=== PATIENT | female | born 1940 | race Caucasian/White ===

== ENCOUNTER 2022-02-19 09:00 | Outpatient (CLI) | payer OTHER, SELFPAY ==
--- NOTE | 2022-02-13 13:00 | PC.NURSE ---
Pre Radiology instructions Report to the Outpatient Waiting Room, entrance under the green pavilion located off [facility], at time __0930 on date __02/19/22 . Procedure Time: 1130 . One visitor will be allowed to accompany the patient into the hospital. The visitor will be instructed to remain with patient at all times or leave the building. We will allow the visitor to come back to the postoperative area when patient is ready. You and your visitor will be asked a series of questions to screen for COVID 19 for your protection. A mask is required within the hospital. Pre-procedure COVID Testing Requirements: No COVID Test needed if: (proof is required; if not received patient will have Rapid Test prior to entry)- Patient has received COVID Vaccine at least 14 days prior to procedure date or- Patient has positive COVID test result within last 90 days of procedure date. COVID Test needed if above criteria is not met If not COVID vaccinated a COVID test must be conducted within 72 hours of surgery and patient is asked to isolate self from time of testing until procedure. You will go to the [facility] for your COVID testing. The [facility] is located at the corner of [address] [facility]. You will only be called if COVID results are positive and your surgeon may reschedule your elective procedure date Patients are to have no food or drink 6 hours prior to procedure time Driving will be restricted after the procedure, you must have a person to drive you home. Labs will be drawn in preop area and once reviewed, you will be taken to radiology area for procedure. When the procedure is completed, you will be taken to outpatient where you will be monitored for several hours. You may have one visitor in this area. Other than holding anti-coagulants, patient may take other medication(s) as scheduled. Prior to your appointment date patients are instructed to hold anti-coagulants after discussing with ordering provider to stop. If unable to discontinue anti-coagulants please notify radiologist. No aspirin or warfarin (Coumadin) for 7 days prior to the procedure. No clopidogrel (Plavix), ticagrelor (Brilinta), prasugrel (Effient) or dabigatran (Pradaxa) for 5 days prior to the procedure. No rivaroxaban (Xarelto), apixaban (Eliquis), dipyridamole (Aggrenox or Persantine) or cilostazol (Pletal) for 2 days prior to the procedure. Medications to discontinue per physician: ____ASPIRIN 7 DAYS PRE OP Date to take last dose: _02/11/22 Please leave all valuables, including medications, at home the day of procedure. The hospital will not accept responsibility for valuables. Wear comfortable, loose fitting clothing. Follow any additional instructions given to you from ordering provider. Telephone instructions given to _PATIENT and asked if any additional questions and then verbalized understanding. Patient advised to call scheduling provider office or registration scheduling [phone] if any additional questions.
[2022-02-13 13:05] VITALS: BMI 35.4
[2022-02-19] VITALS (10 sets, daily range): BP systolic 112–145; BP diastolic 64–87; PULSE 61–71; RESP 16–20; TEMP 35.9; O2SAT 100
--- NOTE | ~2022-02-19 | XR_ITS ---
EXAMINATION: XR chest 1V DATE: 02/19/2022 11:13 INDICATION: Post percutaneous left lung biopsy TECHNIQUE: frontal view of the chest was obtained. COMPARISON: Outside institution chest CT dated 12/28/2021 FINDINGS: Again seen are a few small bilateral calcified nodules along with a calcified AP window lymph node co nsistent with old granulomatous disease. Ill-defined nodular opacity left infrahilar region correspon ding to the biopsied nodule. No other airspace opacities, pulmonary edema, pleural effusion or pneumo thorax. The cardiomediastinal silhouette is normal. IMPRESSION: 1. No pneumothorax or other acute pulmonary disease post percutaneous biopsy if a nodule in the super ior segment of the left lower lobe which is concerning for primary bronchogenic carcinoma. Reviewed, dictated and finalized at location A. IMPRESSION: 1. No pneumothorax or other acute pulmonary disease post percutaneous biopsy if a nodule in the superior segment of the left lower lobe which is concerning fo r primary bronchogenic carcinoma.
--- NOTE | ~2022-02-19 | CT_ITS ---
EXAMINATION: CT biopsy lung w/imaging DATE: 02/19/2022 11:20 INDICATION: Left lower lobe pulmonary nodule TECHNIQUE: The procedure including the risks and benefits was discussed with the patient. Risks discu ssed included infection, approximately 1/20 risk of symptomatic hemorrhage beyond mild hemoptysis, ap proximately 1/3 risk of pneumothorax, and approximately 1/10 risk of pneumothorax severe enough to wa rrant chest tube placement. The patient understood the risks and agreed to proceed. The patient was p laced prone. The skin overlying the posterior inferior left hemithorax was prepped and draped in john rile fashion. Anesthetic was administered with 1% lidocaine subcutaneously. A 19 gauge outer needle was advanced under CT guidance to the lesion of interest. A 20 gauge core biopsy needle was then use d to obtain 4 core biopsy specimens. The needle was removed and the entry site was cleaned and dresse d. There were no immediate complications. The dose-length product was 169.98 mGy-cm. FINDINGS: CT images demonstrate the outer needle tip adjacent to a 2.2 x 1.4 cm left lower lobe nodul e. IMPRESSION: 1. Successful CT-guided biopsy of a 2.2 x 1.4 cm left lower lobe nodule. Reviewed, dictated and finalized at location A.
--- NOTE | ~2022-02-19 | XR_ITS ---
XR chest 1V portable DATE: 02/19/2022 14:34 INDICATION: 3 hours post lung biopsy TECHNIQUE: Portable upright AP chest on 02/19/2022 at 1431 hours COMPARISON: 02/19/2022 portable AP chest 02/19/2022 CT lung biopsy FINDINGS: There is no evidence of left pneumothorax following left lower lobe CT-guided percutaneous needle biopsy. The lungs appear clear of infiltrate or consolidation. No pleural effusion is evident. Heart size sherrie ears normal. IMPRESSION: No evidence of iatrogenic left pneumothorax following CT-guided mediastinal biopsy of lef t lower lobe mass Reviewed, dictated and finalized at location B. IMPRESSION: No evidence of iatrogenic left pneumothorax following CT-guided med iastinal biopsy of left lower lobe mass
--- NOTE | ~2022-02-19 | XR_ITS ---
XR chest 1V portable DATE: 02/19/2022 12:56 INDICATION: 3 hours post lung biopsy TECHNIQUE: Portable AP chest at 1250 hours COMPARISON: None FINDINGS: Normal heart size. No hilar or mediastinal enlargement. There is mild left upper lobe discoid atelectasis or scarring. No pulmonary infiltrate or consolidation, pulmonary vascular congestion or pleural effusion or pneumo thorax is detected. There is old pulmonary granulomatous disease. Degenerative spurring of the thoracic spine. IMPRESSION: No active cardiopulmonary disease Reviewed, dictated and finalized at location B.
[2022-02-19 09:33] LABS: Mean Platelet Volume 9.8 fl (7.4-10.4); Platelet Count Result 215 k/mm3 (150-375)
[2022-02-19 09:58] LABS: Prothrombin Time 13.1 Seconds (11.1-14.7)
== END 2022-02-19 15:05 | disposition home or self-care (01) ==
PROVIDERS: PCP Family Medicine; Referring Provider Nurse Practitioner Family; Visit Provider Radiology Diagnostic Radiology
PROC: BB24ZZZ Computerized Tomography (CT Scan) of Bilateral Lungs (ICD-10-PCS; CPT 32408; principal; 2022-02-19 11:30)
DX: R91.8 Other nonspecific abnormal finding of lung field (principal); J18.9 Pneumonia, unspecified organism
CPT/HCPCS: 32408; 36415; 71045; 85049; 85610; 88305; 88312; 88342

== ENCOUNTER 2022-02-22 09:37 | Outpatient (CLI) | payer OTHER, SELFPAY ==
--- NOTE | 2022-02-22 15:48 | WPDPFTINT ---
PFT Procedure Performed PFT Procedure Performed Spirometry with Pre/Post Bronchodilator Plethysmography (Lung Vol) Diffusing Cap (DLCO) Flow Vol Loop PFT Interpretation This is a pulmonary function test with pre and post-bronchodilator spirometry, plethysmography and diffusing capacity. The test was performed and results interpreted in accordance with the 2019 and 2005 ATS/ERS Task Force guidelines respectively using the Global Lung Function Initiative-2012 reference equations. Patient demonstrated good effort and cooperation. Reproducibility criteria were met. The quality of the pre bronchodilator spirometry maneuver was Grade A and post bronchodilator spirometry maneuver was Grade B. Findings: Spirometry: The contour the inspiratory and expiratory flow tracing are normal. The pre bronchodilator FVC is 2.17 L, 88% predicted. The pre bronchodilator FEV1 is 1.55 L, 82% predicted. The pre bronchodilator FEV1: FVC ratio is 71%. The post bronchodilator FVC is 2.12 L, representing a 2% decrease. The post bronchodilator FEV1 is 1.68 L, representing 8% decrease. The post bronchodilator FEV1: FVC ratio 79%. Plethysmography: The total lung capacity is 4.20 L, 86% predicted. Functional residual capacity is 1.99 L, 70% predicted. The residual volume is 1.95 L, 84% predicted. Diffusing capacity: The diffusing capacity unadjusted for hemoglobin and carboxyhemoglobin is 14.4, 75% predicted. The diffusing capacity adjusted for alveolar volume is 4.26, 102% predicted. Impression: The spirometry is normal without evidence of an obstructive abnormality. There is no significant improvement after inhaling a single dose of albuterol. The lung volumes are normal. The diffusing capacity is normal. There are no prior studies for comparison
--- NOTE | 2022-02-22 15:50 | WPDSIXMINUTE ---
Six Minute Walk Procedure Procedure Performed Pulmonary Stress Test (6 min walk) Six Minute Walk This is a 6 minute walk test. The test was performed and interpreted in accordance with the 2014 ERS/ATS task force guidelines. Findings: The patient's resting room air oxygen saturation measured by pulse oximetry was 98% and heart rate was 65 bpm. Patient ambulated for 305 meters and oxygen saturation remained 95 to 98%. Heart rate at the end of the study was 91 bpm. The patient did not qualify for supplemental oxygen at rest or with ambulation. There are no prior studies for comparison.
== END 2022-02-22 09:38 | disposition home or self-care (01) ==
PROVIDERS: PCP Family Medicine; Visit Provider Internal Medicine Critical Care Medicine
DX: R06.02 Shortness of breath (principal)
CPT/HCPCS: 94060; 94618; 94726; 94729

== ENCOUNTER 2022-03-07 09:09 | Outpatient (CLI) | payer OTHER, SELFPAY ==
--- NOTE | ~2022-03-07 | PE_ITS ---
EXAMINATION: PET skull to mid thigh DATE: 03/07/2022 11:05 INDICATION: Abnormal finding of lung field TECHNIQUE: Blood glucose level was 111 mg/dL. 8.94 mCi of 18-fluorodeoxyglucose (18-FDG) was administ ered i.v. Low dose computed tomography (CT) images were acquired from the base of the brain to the pr oximal thighs for attenuation correction and anatomic localization. Positron emission tomography (PET ) images were acquired in the same distribution beginning 57 minutes after injection. Images includin g fused PET/CT images were reconstructed in axial, coronal, and sagittal planes. Automated exposure c ontrol technique was employed. The dose-length product was 1008.27mGy-cm. COMPARISON: None FINDINGS: Head/neck: There is symmetric increased activity in the oral and nasal cavities and ocular muscles without CT co rrelate, likely physiologic. No pathologically enlarged cervical lymphadenopathy or suspicious foci o f increased FDG uptake in the visualized head or neck. Chest: There are small bilateral calcified pulmonary nodules along with calcified bilateral hilar and medias tinal lymph nodes consistent with old granulomatous disease. A recently biopsied nodule measuring 1.8 x 1.5 cm nodule and situated between 2 of the calcified pulmonary nodules demonstrates mild FDG acti vity with maximal SUV of 2.6 which remain slightly lower than the uptake of the liver with maximal FERGUSON V of 3.0. Linear band of discoid atelectasis/scarring at the left upper lobe. No other airspace opaci ties, pulmonary edema or pleural effusion. Heart size is normal. Dense mitral annular calcific locati on. No pericardial effusion. No pathologically enlarged or FDG avid thoracic lymphadenopathy. Abdomen/pelvis/proximal thighs: Physiologic renal accumulation and excretion of FDG activity in the kidneys, bladder and along portio ns of ureters. Diffuse hepatic steatosis. Normal degree and heterogenous pattern of increased uptake throughout the liver without radiologic correlate or dominant FDG avid lesion. The gallbladder, pancr eas, spleen and bilateral adrenal glands are normal. Mild uptake scattered throughout the bowels with out radiologic correlate, also likely physiologic. The uterus is not identified and has likely been s urgically resected. No other abnormal foci of increased FDG uptake or pathologically enlarged lymp hadenopathy in the abdomen, pelvis or proximal thighs. Musculoskeletal: No suspicious lytic, blastic or FDG avid bone lesions. IMPRESSION: 1. 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 This would be a concordant finding. Would recommend continued follow-up low-dose noncontrast chest CT in 6-12 months. Reviewed, dictated and finalized at location B. IMPRESSION: 1. 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 This would be a concordant finding. Wou ld recommend continued follow-up low-dose noncontrast chest CT in 6-12 months.
[2022-03-07 09:49] LABS: Glucose Point of Care 111 mg/dl (65-105)
== END 2022-03-07 09:10 | disposition home or self-care (01) ==
PROVIDERS: PCP Family Medicine; Visit Provider Internal Medicine Critical Care Medicine
DX: R91.1 Solitary pulmonary nodule (principal)
CPT/HCPCS: 78815; A9552

== ENCOUNTER 2022-09-09 11:27 | Outpatient (CLI) | payer OTHER, SELFPAY ==
--- NOTE | ~2022-09-09 | CT_ITS ---
EXAMINATION: CT diagnostic chest wo con DATE: 09/09/2022 12:04 INDICATION: Follow-up pulmonary nodules TECHNIQUE: Computed tomography (CT) of the chest was performed without intravenous contrast. The dose -length product was 310.16 mGy-cm. Automated exposure control and iterative reconstruction technique were employed. COMPARISON: Pet/CT dated 03/07/2022 FINDINGS: There are calcified mediastinal and hilar lymph nodes, consistent with chronic granulomatou s disease. There is bilateral symmetric subareolar soft tissue, unchanged from prior examination. Hea rt size is normal. No significant pleural or pericardial effusion. There are calcified granulomas of the spleen. Mild wedge deformities of the lower thoracic spine, likely chronic. Moderate thoracic spo ndylosis. No focal lytic or blastic lesions. There are a few scattered calcified granulomas of the esther ngs. Stable 3 mm right upper lobe nodule, image 38. Stable groundglass opacities right upper lobe. Th ere is an adjacent calcified granuloma. Stable focal atelectasis/scarring adjacent to the fissure in the left upper lung. Stable 6 mm right middle lobe nodule lying for differences of technique, image 6 3 no significant change to left lower lobe nodule measuring 1.6 x 1.1 cm greatest axial dimension. 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 Si gnificant improvement of diffuse groundglass opacification in both lungs. No pneumothorax.. IMPRESSION: 1. Stable bilateral pulmonary nodules allowing for differences of technique, likely benign. Follow-up low dose CT chest in 6 months recommended. Reviewed, dictated and finalized at location A. CANVASSER IMPRESSION: 1. Stable bilateral pulmonary nodules allowing for differences of technique, lesley ford benign. Follow-up low dose CT chest in 6 months recommended.
== END 2022-09-09 11:28 | disposition home or self-care (01) ==
PROVIDERS: PCP Family Medicine; Visit Provider Internal Medicine Critical Care Medicine
DX: R91.8 Other nonspecific abnormal finding of lung field (principal)
CPT/HCPCS: 71250

== ENCOUNTER 2023-03-13 14:12 | Outpatient (CLI) | payer OTHER, SELFPAY ==
--- NOTE | ~2023-03-13 | CT_ITS ---
EXAMINATION:CT diagnostic chest wo con DATE: 03/13/2023 14:36 INDICATION: Other nonspecific abnormal finding of lung field. Lung nodules. TECHNIQUE: Computed tomography (CT) of the chest was performed without intravenous contrast. Automate d exposure control and iterative reconstruction technique were employed. The dose-length product (DLP ) was 313.12 mGy-cm. COMPARISON: Chest CT 09/09/2022, 12/28/21 FINDINGS: The lungs demonstrate mild atelectasis. There is mild scarring in paraspinal right lower lo be. Calcified pulmonary nodules and calcified hilar and mediastinal lymph nodes are consistent with o ld granulomatous disease. There is a stable 3 mm nodule in right upper lobe. There is a 6 mm nodule i n right middle lobe, stable from 12/28/21. There is a 15 mm nodule in left lower lobe, stable from 12/11 06/03. Biopsy 02/19/22 was benign. No pleural effusion. The heart size is normal. No pericardial effusi on. Calcifications in the spleen are consistent with old granulomatous disease. There is diffuse hepa tic steatosis. There is mild thoracic spondylosis. IMPRESSION: 1. Stable pulmonary nodules, likely benign. Reviewed, dictated and finalized at location A.
== END 2023-03-13 14:13 | disposition home or self-care (01) ==
PROVIDERS: PCP Family Medicine; Visit Provider Nurse Practitioner Family
DX: R91.8 Other nonspecific abnormal finding of lung field (principal)
CPT/HCPCS: 71250